=== PATIENT | male | born 1930 | race Caucasian/White ===

== ENCOUNTER 2021-04-08 22:25 | Inpatient (IN) | payer MEDICARE, BC, OTHER ==
[~2021-04-08] VITALS: Ht 177.8 cm; Wt 77.6 kg
--- NOTE | 2021-04-08 22:58 | NUR ---
XRAY AT BEDSIDE.
[2021-04-08 22:59] LABS: HEMATOCRIT 33.7 % (36.7-47.1); MEAN CORPUSCULAR HEMOGLOBIN 28.1 uug (23.8-33.4); MEAN CORPUSCULAR VOLUME 84.8 fL (73.0-96.2); PLATELET COUNT (AUTO) 489 K/uL (152-348)
[2021-04-08 23:05] LABS: CARBON DIOXIDE 26 mmol/L (21-32); CHLORIDE 105 mmol/L (98-107); CREATININE 2.2 mg/dL (0.6-1.3); GLUCOSE 126 mg/dL (74-106); POTASSIUM 4.3 mmol/L (3.5-5.1); UREA NITROGEN, BLOOD 43 mg/dL (7-18)
[2021-04-08 23:16] LABS: ALANINE AMINOTRANSFERASE 20 U/L (16-63); ALKALINE PHOSPHATASE 130 U/L (50-136); ASPARTATE AMINOTRANSFERASE 21 U/L (15-37); BILIRUBIN,DIRECT 0.1 mg/dL (0.0-0.2); BILIRUBIN,TOTAL 0.3 mg/dL (0.2-1.0); TOTAL PROTEIN, SERUM 7.3 g/dL (6.4-8.2)
[2021-04-08] MEDS ORDERED: CRAN200C PO (23:20)
[2021-04-08] MEDS ORDERED: DOXA4TAB2 PO (23:20)
[2021-04-08] MEDS ORDERED: MEMA10TA PO (23:20)
[2021-04-08] MEDS ORDERED: BISA10SU61 RC (23:20)
[2021-04-08] MEDS ORDERED: DICLOFENAC TOP (23:20)
[2021-04-08] MEDS ORDERED: AMLO10TA59 PO (23:20)
[2021-04-08] MEDS ORDERED: BRIN10DR EACHEYE (23:20)
[2021-04-08] MEDS ORDERED: SENN-261 PO (23:20)
[2021-04-08] MEDS ORDERED: CYAN100T44 PO (23:20)
[2021-04-08] MEDS ORDERED: ACET-2154 PO ×2 (23:20)
[2021-04-08] MEDS ORDERED: CHOL10005 PO (23:20)
[2021-04-08] MEDS ORDERED: BIMA2.5D5 EACHEYE (23:20)
[2021-04-08] MEDS ORDERED: ASPI81TA31 PO (23:20)
[2021-04-08] MEDS ORDERED: OMEP20TA5 PO (23:20)
[2021-04-09] MEDS ORDERED: LIDOCAINE 2% (UROJET) 10 ML JELLY MM ONE ×2 (00:01)
[2021-04-09] MEDS ORDERED: CEFTRIAXONE 1 G in IV DEXTROSE 5% 50 ML IV ONE (00:15)
[2021-04-09] MEDS ORDERED: ASPIRIN 300 MG RECTAL SUPP RC ONE ×2 (00:15→00:51)
[2021-04-09] MEDS ORDERED: CEFTRIAXONE /D5W 50ML IVPB **ER PYXIS IV ONE (00:24)
--- NOTE | 2021-04-09 01:00 | NUR ---
PT NOTED TO BE SOILED, PROVIDED PROPER PERINEAL CARE. PT NOTED TO BE CLEAN DRY AND COMFORTABLE.
--- NOTE | 2021-04-09 02:27 | NUR ---
CALLED [facility], HALLIE RESTREPO PAGED.
[2021-04-09] MEDS ORDERED: ONDANSETRON 4 MG/2 ML VIAL IV PRN (02:45)
[2021-04-09] MEDS ORDERED: ACETAMINOPHEN 325 MG TABLET-SA PATIENTS-PAIN ONLY PO PRN ×2 (02:45)
[2021-04-09] MEDS ORDERED: ACETAMINOPHEN 325 MG TABLET PO PRN (02:45)
--- NOTE | 2021-04-09 02:59 | NUR ---
CALLED [facility] FOR CT DICTATION.
--- NOTE | 2021-04-09 03:07 | NUR ---
GAVE REPORT TO ROLANDO ORDOÑEZ.
[2021-04-09 04:30] VITALS: BP 113/57
[2021-04-09] MEDS ORDERED: VANCOMYCIN IV 1,250 MG in IV DEXTROSE 5% 250 ML IV ONE (05:00)
--- NOTE | 2021-04-09 05:00 | NUR ---
Admitted a 89 years old male with Dx of Sepsis with secondary Dx of NSTEMI. Patient non-verbal, and withdrawn. In no apparent distress. No signs or symptoms of pain or SOB. O2 at 2 LPM via NC in place. O2 sat at 99%. SR on tele with AV block with HR of 75/min. IV site on right FA intact and patent. Routine admission care done. Plan of care initiated. Safety measure initiated and call light within reached.
[2021-04-09] MEDS: IV NS 1000 ML 1,000 ML IV PRN (05:01)
--- NOTE | 2021-04-09 05:10 | NUR ---
Pt. admitted to TELE , under care of Dr. RESTREPO DX: SEPSIS Belongs List completed
[2021-04-09] MEDS ORDERED: PIPERACILLIN SODIUM/TAZOBACTAM 3.375 G in IV DEXTROSE 5% 50 ML IV ONE (05:15)
[2021-04-09] MEDS ORDERED: PIPERACILLIN SODIUM/TAZO 3.375 GM VIAL ONE (05:40)
[2021-04-09] MEDS ORDERED: VANCOMYCIN 1000 MG VIAL ONE (05:41)
[2021-04-09] MEDS ORDERED: VANCOMYCIN HCL 500 MG VIAL ONE (05:42)
[2021-04-09] MEDS ORDERED: PIPERACILLIN SODIUM/TAZOBACTAM 3.375 G in IV DEXTROSE 5% 50 ML IV SCH (06:00)
[2021-04-09] MEDS ORDERED: PANTOPRAZOLE SODIUM 40 MG TABLET.DR PO SCH (07:00)
--- NOTE | 2021-04-09 08:00 | NUR ---
AWAKE ALERT AND RESPONSIVE VERBALLY BUT GARBLED. NOTED COUGHING DURING FEEDING. WILL FOLLOW-UP ST FOR EVAL. NO SS OF DISTRESS WITH CONTINUOUS O2 AT 2L SATURATING 100%. AFEBRILE. SR ON MONITOR
[2021-04-09] MEDS: PANTOPRAZOLE SODIUM 40 MG VIAL IV SCH (08:31)
[2021-04-09] MEDS: DORZOLAMIDE 2% OPHT DROP 10 ML BOTTLE EACHEYE SCH ×2 (08:31→16:37)
[2021-04-09] MEDS: CYANOCOBALAMIN 1,000 MCG TABLET PO SCH (08:32)
[2021-04-09] MEDS: CHOLECALCIFEROL 1,000 UNIT TABLET PO SCH (08:32)
[2021-04-09] MEDS: ASPIRIN 81 MG TAB.CHEW PO SCH (08:32)
[2021-04-09] MEDS: SENNOSIDES 1 TABLET PO SCH ×2 (08:32→16:36)
[2021-04-09] MEDS: MEMANTINE HCL 10 MG TABLET PO SCH ×2 (08:32→16:37)
--- NOTE | 2021-04-09 10:00 | NUR ---
TRIED INSERTION OF GOODEN BUT UNSUCCESSFUL DR VICENTE NOTIFIED AND SAID WILL NOTIFIED URO FOR CONSULT
[2021-04-09 10:41] LABS: HEMATOCRIT 32.5 % (36.7-47.1); MEAN CORPUSCULAR HEMOGLOBIN 27.7 uug (23.8-33.4); MEAN CORPUSCULAR VOLUME 85.7 fL (73.0-96.2); PLATELET COUNT (AUTO) 451 K/uL (152-348)
[2021-04-09 10:51] LABS: CARBON DIOXIDE 27 mmol/L (21-32); CHLORIDE 105 mmol/L (98-107); CREATININE 2.7 mg/dL (0.6-1.3); GLUCOSE 132 mg/dL (74-106); POTASSIUM 4.3 mmol/L (3.5-5.1); UREA NITROGEN, BLOOD 50 mg/dL (7-18)
[2021-04-09 11:07] VITALS: BP 93/38
[2021-04-09 11:07] LABS: ALANINE AMINOTRANSFERASE 42 U/L (16-63); ALKALINE PHOSPHATASE 98 U/L (50-136); ASPARTATE AMINOTRANSFERASE 214 U/L (15-37); BILIRUBIN,TOTAL 0.5 mg/dL (0.2-1.0); MAGNESIUM 2.1 mg/dL (1.8-2.4); PHOSPHOROUS 4.3 mg/dL (2.5-4.9); TOTAL PROTEIN, SERUM 7.1 g/dL (6.4-8.2)
[2021-04-09 11:08] LABS: THYROID STIMULATING HORMONE 1.386 mIU/mL (0.358-3.740)
--- NOTE | 2021-04-09 12:00 | NUR ---
PATIENT NOW GARTH STATUS, CLOSELY MONITORED
[2021-04-09] MEDS: PIPERACILLIN/TAZO 2.25 G in IV DEXTROSE 5% 50 ML IV SCH ×3 (12:22→23:07)
--- NOTE | 2021-04-09 13:00 | NUR ---
PATIENT TOLERATING O2 AT 2L NC SATURATING 100%. TOLERATING HEPARIN DRIP, CONTINUE PER PROTOCOL
[2021-04-09] MEDS: HEPARIN/D5W DRIP 500 ML IV PRN (13:08)
[2021-04-09] MEDS ORDERED: CLOPIDOGREL 75 MG TABLET PO ONE (15:30)
--- NOTE | 2021-04-09 16:00 | NUR ---
DR STANLEY IN AND INSERTED GOODEN CATH USING 16 FR COUDE, PATIENT TOLERATED WELL NO SIGNS OF BLEEDING. URINE SPC. SENT FOR ANALYSIS
[2021-04-09 16:33] VITALS: BP 129/68
--- NOTE | 2021-04-09 17:39 | NUR ---
DR ARBOLEDA AROUND AND MADE AWARE OF LATEST TROPONIN, NO NEW ORDERS MADE. PATIENT REMAINS ON GARTH STATUS WITH HEPARIN DRIP PER PROTOCOL. NO SS OF PAIN OR DISTRESS
[2021-04-09 17:47] LABS: *BILIRUBIN,URIN NEGATIVE (NEGATIVE); *BLOOD, URINE 3+ (NEGATIVE); *CLARITY,URINE TURBID (CLEAR); *COLOR,URINE YELLOW (YELLOW); *KETONES,URINE TRACE (NEGATIVE); *UROBILINOGEN,URINE 0.2 E.U./dl (NORMAL); LEUKOCYTE ESTERASE ,URINE 2+ (NEGATIVE); NITRITE, URINE NEGATIVE (NEGATIVE); PH,URINE 8.5 (5.0-8.0); UGLUCOSE NEGATIVE (NEGATIVE)
[2021-04-09 19:53] LABS: BACTERIA,URINE MODERATE /HPF (NONE SEEN); RBC,URINE TNTC /HPF (0-3); SQUAMOUS EPITHELIAL CELL,UR FEW /HPF (NONE SEEN); WBC,URINE TNTC /HPF (0-3)
[2021-04-09 20:00] VITALS: BP 113/64
[2021-04-09] MEDS: LATANOPROST OPHT DROP 2.5 ML BOTTLE EACHEYE SCH (21:40)
[2021-04-09] MEDS: DOXAZOSIN 2 MG TABLET PO SCH (21:41)
[2021-04-10 04:00] VITALS: BP 114/66
[2021-04-10] MEDS: PIPERACILLIN/TAZO 2.25 G in IV DEXTROSE 5% 50 ML IV SCH ×3 (06:07→17:22)
[2021-04-10] MEDS: IV NS 1000 ML 1,000 ML IV PRN (06:11)
[2021-04-10 07:39] LABS: HEMATOCRIT 30.5 % (36.7-47.1); MEAN CORPUSCULAR HEMOGLOBIN 27.5 uug (23.8-33.4); MEAN CORPUSCULAR VOLUME 85.7 fL (73.0-96.2); PLATELET COUNT (AUTO) 399 K/uL (152-348)
[2021-04-10 07:52] LABS: ALANINE AMINOTRANSFERASE 47 U/L (16-63); ALKALINE PHOSPHATASE 84 U/L (50-136); ASPARTATE AMINOTRANSFERASE 193 U/L (15-37); BILIRUBIN,TOTAL 0.3 mg/dL (0.2-1.0); CARBON DIOXIDE 26 mmol/L (21-32); CHLORIDE 106 mmol/L (98-107); CREATININE 2.3 mg/dL (0.6-1.3); GLUCOSE 121 mg/dL (74-106); POTASSIUM 4.1 mmol/L (3.5-5.1); TOTAL PROTEIN, SERUM 6.8 g/dL (6.4-8.2); UREA NITROGEN, BLOOD 47 mg/dL (7-18)
--- NOTE | 2021-04-10 08:00 | NUR ---
RECEIVED PATIENT AWAKE AND OPENS EYES TO VERBAL AND TACTILE STIMULI, NO SIGNS OF DISTRESS WITH 2-3 L O2 NC. ON GOING HEPARIN DRIP PER PROTOCOL. SR ON MONITOR
[2021-04-10] MEDS: ASPIRIN 81 MG TAB.CHEW PO SCH (08:33)
[2021-04-10] MEDS: PANTOPRAZOLE SODIUM 40 MG VIAL IV SCH (08:33)
[2021-04-10] MEDS: CHOLECALCIFEROL 1,000 UNIT TABLET PO SCH (08:34)
[2021-04-10] MEDS: CYANOCOBALAMIN 1,000 MCG TABLET PO SCH (08:34)
[2021-04-10] MEDS: SENNOSIDES 1 TABLET PO SCH ×2 (08:34→17:00)
[2021-04-10] MEDS: MEMANTINE HCL 10 MG TABLET PO SCH ×2 (08:34→17:00)
[2021-04-10] MEDS: CLOPIDOGREL 75 MG TABLET PO SCH (08:34)
[2021-04-10] MEDS: LATANOPROST OPHT DROP 2.5 ML BOTTLE EACHEYE SCH (08:36)
[2021-04-10] MEDS: DORZOLAMIDE 2% OPHT DROP 10 ML BOTTLE EACHEYE SCH ×2 (08:40→17:21)
[2021-04-10] MEDS: HEPARIN/D5W DRIP 500 ML IV PRN (10:35)
[2021-04-10 12:00] VITALS: BP_SYST 142; BP_SYST 165; BP_DIAS 75; BP_DIAS 84
--- NOTE | 2021-04-10 12:00 | NUR ---
NO ACUTE CHANGE FRO MORNING ASSESSMENT SEEN BY DR ARBOLEDA SEE NOTES
[2021-04-10 14:30] LABS: VANCOMYCIN,RANDOM 10.3 ug/mL (18.0-26.0)
[2021-04-10] MEDS ORDERED: VANCOMYCIN IV 750 MG in IV DEXTROSE 5% 250 ML IV ONE (15:00)
[2021-04-10 16:24] VITALS: BP 141/82
--- NOTE | 2021-04-10 17:00 | NUR ---
CONTINUE WITH HEPARIN DRIP PER PROTOCOL.
[2021-04-10] MEDS ORDERED: LEVALBUTEROL HCL NEB 0.63 MG/3 ML NEBU NEB PRN (18:45)
--- NOTE | 2021-04-10 18:45 | NUR ---
ON AND OFF WHEEZING NOTED, PATIENT SATURATION 100% 2-3L NC. DR VICENTE NOTIFIED WITH ORDERS. WILL START BREATHING TX. RT NOTIFIED.
[2021-04-10] MEDS: ALBUTEROL SULFATE 2.5 MG/3 ML NEBU NEB PRN (19:06)
[2021-04-10 20:00] VITALS: BP 138/79
[2021-04-10] MEDS: DOXAZOSIN 2 MG TABLET PO SCH (21:00)
--- NOTE | 2021-04-10 21:48 | NUR ---
Held PO night meds due to patient aspirating during day shift. Swallow eval pending.
[2021-04-11] VITALS: BP 132/95
[2021-04-11] MEDS: PIPERACILLIN/TAZO 2.25 G in IV DEXTROSE 5% 50 ML IV SCH ×2 (01:02→08:17)
[2021-04-11] MEDS: ALBUTEROL SULFATE 2.5 MG/3 ML NEBU NEB PRN (03:44)
[2021-04-11 04:00] VITALS: BP 146/80
--- NOTE | 2021-04-11 05:57 | NUR ---
Pt slept throughout the night. Breathing treatments given PRN. Heparin drip currently running at 1050units. Waiting for PTT results to update Heparin rate. No distress noted. IV site intact. Pt's son wishes to speak to doctor providing care to patient and also requests that patient receive a c.o.d. biller consult for his wheezing. Will endorse to day shift.
[2021-04-11 06:59] LABS: HEMATOCRIT 29.4 % (36.7-47.1); MEAN CORPUSCULAR HEMOGLOBIN 27.5 uug (23.8-33.4); MEAN CORPUSCULAR VOLUME 85.2 fL (73.0-96.2); PLATELET COUNT (AUTO) 420 K/uL (152-348)
[2021-04-11 07:49] LABS: CARBON DIOXIDE 25 mmol/L (21-32); CHLORIDE 108 mmol/L (98-107); CREATININE 2.2 mg/dL (0.6-1.3); GLUCOSE 137 mg/dL (74-106); MAGNESIUM 1.8 mg/dL (1.8-2.4); PHOSPHOROUS 4.6 mg/dL (2.5-4.9); POTASSIUM 3.9 mmol/L (3.5-5.1); UREA NITROGEN, BLOOD 38 mg/dL (7-18); VANCOMYCIN,RANDOM 13.3 ug/mL (18.0-26.0)
[2021-04-11] MEDS ORDERED: VANCOMYCIN IV 1,000 MG in IV DEXTROSE 5% 250 ML IV ONE (08:30)
[2021-04-11 08:35] VITALS: BP 166/88
[2021-04-11] MEDS: CHOLECALCIFEROL 1,000 UNIT TABLET PO SCH (09:00)
[2021-04-11] MEDS: SENNOSIDES 1 TABLET PO SCH ×2 (09:00→17:00)
[2021-04-11] MEDS: CLOPIDOGREL 75 MG TABLET PO SCH (09:00)
[2021-04-11] MEDS: METOPROLOL TARTRATE 25 MG TABLET PO SCH ×2 (09:00→20:48)
[2021-04-11] MEDS: ASPIRIN 81 MG TAB.CHEW PO SCH (09:00)
[2021-04-11] MEDS: CYANOCOBALAMIN 1,000 MCG TABLET PO SCH (09:00)
[2021-04-11] MEDS: MEMANTINE HCL 10 MG TABLET PO SCH ×2 (09:00→17:00)
[2021-04-11] MEDS: PANTOPRAZOLE SODIUM 40 MG VIAL IV SCH (10:20)
[2021-04-11] MEDS: DORZOLAMIDE 2% OPHT DROP 10 ML BOTTLE EACHEYE SCH ×2 (10:20→17:41)
[2021-04-11 12:00] VITALS: BP 141/77
[2021-04-11] MEDS: PIPERACILLIN SODIUM/TAZOBACTAM 3.375 G in IV DEXTROSE 5% 100 ML IV SCH ×2 (14:57→21:18)
[2021-04-11] MEDS ORDERED: VANCOMYCIN IV 1,250 MG in IV DEXTROSE 5% 250 ML IV ONE (15:00)
--- NOTE | 2021-04-11 15:28 | NUR ---
Pt is a/o x 1, non verbal, presenting with sinus rhyth and first degree heart block on telemetry. Latest aPTT level is 49.0 downward trending. Heparin drip discontinued in the am. Pt's lemus catheter draining yellow/bell urine. Pt was oin cardiac diet but placed on NPO last night due to aspiration and wheezing present. Swallow evaluation done today by . Pt continue to receive IV antibiotics. Morning PO medications held due to NPO status, MD notified. Cooling measures provided for temperature. Comfort measures provided, call light within reach, frequent checks on pt conducted. Will continue to monitor.
[2021-04-11 16:14] VITALS: BP 140/76
[2021-04-11 20:44] VITALS: BP 104/61
[2021-04-11] MEDS: LATANOPROST OPHT DROP 2.5 ML BOTTLE EACHEYE SCH (20:46)
[2021-04-11] MEDS: DOXAZOSIN 2 MG TABLET PO SCH (20:47)
[2021-04-12 01:31] VITALS: BP 139/87
[2021-04-12 04:22] VITALS: BP 142/51
[2021-04-12] MEDS: PIPERACILLIN SODIUM/TAZOBACTAM 3.375 G in IV DEXTROSE 5% 100 ML IV SCH ×2 (05:07→13:19)
--- NOTE | 2021-04-12 06:32 | NUR ---
Received resident awake on bed with son at bedside upon initial rounds. On O2 at 2L via NC with no respiratory distress noted. NSR on Tele. Remains on NPO per ST eval, oral meds not given, vital signs WNL. FC draining well with clear, yellowish urine. All due meds given on time and tolerated well. All needs attended. Call light placed within reach. Frequent visual checks done. Will endorse to next shift.
[2021-04-12 07:01] LABS: HEMATOCRIT 30.8 % (36.7-47.1); MEAN CORPUSCULAR VOLUME 86.3 fL (73.0-96.2); PLATELET COUNT (AUTO) 402 K/uL (152-348)
[2021-04-12 07:10] LABS: CARBON DIOXIDE 23 mmol/L (21-32); CHLORIDE 110 mmol/L (98-107); CREATININE 1.9 mg/dL (0.6-1.3); GLUCOSE 95 mg/dL (74-106); POTASSIUM 4.2 mmol/L (3.5-5.1); UREA NITROGEN, BLOOD 32 mg/dL (7-18)
[2021-04-12 08:00] VITALS: BP 149/63
[2021-04-12] MEDS: CLOPIDOGREL 75 MG TABLET PO SCH (09:00)
[2021-04-12] MEDS: MEMANTINE HCL 10 MG TABLET PO SCH ×2 (09:00→16:03)
[2021-04-12] MEDS: ASPIRIN 81 MG TAB.CHEW PO SCH (09:00)
[2021-04-12] MEDS: METOPROLOL TARTRATE 25 MG TABLET PO SCH ×2 (09:00→21:00)
[2021-04-12] MEDS: SENNOSIDES 1 TABLET PO SCH ×2 (09:00→16:03)
[2021-04-12] MEDS: CHOLECALCIFEROL 1,000 UNIT TABLET PO SCH (09:00)
[2021-04-12] MEDS: CYANOCOBALAMIN 1,000 MCG TABLET PO SCH (09:00)
[2021-04-12] MEDS: PANTOPRAZOLE SODIUM 40 MG VIAL IV SCH (09:06)
[2021-04-12] MEDS: DORZOLAMIDE 2% OPHT DROP 10 ML BOTTLE EACHEYE SCH ×2 (09:07→16:44)
--- NOTE | 2021-04-12 16:57 | NUR ---
Dr. Poon notified of patient with current temp of 102.2 with new order for tylenol suppository and blood culture, order noted and carried out.
[2021-04-12] MEDS: ACETAMINOPHEN 650 MG SUPP.RECT RC PRN (17:10)
[2021-04-12 17:30] VITALS: BP 134/71
[2021-04-12] MEDS: IV D5 1/2 NS 1000 ML 1,000 ML IV PRN (17:47)
--- NOTE | 2021-04-12 20:30 | NUR ---
Patient awake alert 1 to 2, unable to tolerate po meds per report, patient npo including medications. Patient has no cough at this time, tolerate iv hydration, on iv abx for sepsis/uti. Patient lemus cath draining with tea color urine in moderate amount, no s/s of pain.
[2021-04-12 20:49] VITALS: BP 120/70
[2021-04-12] MEDS ORDERED: MEROPENEM 1 G in IV NORMAL SALINE 100 ML IV SCH (21:00)
[2021-04-12] MEDS: DOXAZOSIN 2 MG TABLET PO SCH (21:00)
[2021-04-12] MEDS: LATANOPROST OPHT DROP 2.5 ML BOTTLE EACHEYE SCH (21:49)
[2021-04-12] MEDS ORDERED: MEROPENEM 1 G VIAL IV ONE (21:51)
--- NOTE | 2021-04-12 22:06 | NUR ---
medication meropenem 1 gram via iv medication unscannable, enter manually.
[2021-04-13 00:40] VITALS: BP 134/85
--- NOTE | 2021-04-13 04:12 | NUR ---
Patient afebrile, with slight productive cough, HOb elevated turn and reposition, cont to monitor.
[2021-04-13 04:25] VITALS: BP 121/90
--- NOTE | 2021-04-13 06:27 | NUR ---
Patient awake no sob no chest pain, tele monitor sinus rhythm, remains npo, no further episode of coughing noted, kept hob elevated, v/s stable cont to monitor.
--- NOTE | 2021-04-13 07:30 | NUR ---
Received patient in bed. Patient sounds congested and is in need of oral care. No SOB noted at this time. Safety precautions are in place. Will continue to monitor.
[2021-04-13 07:46] LABS: HEMATOCRIT 31.3 % (36.7-47.1); MEAN CORPUSCULAR VOLUME 85.7 fL (73.0-96.2); PLATELET COUNT (AUTO) 380 K/uL (152-348)
[2021-04-13 07:56] LABS: ALANINE AMINOTRANSFERASE 21 U/L (16-63); ALKALINE PHOSPHATASE 72 U/L (50-136); ASPARTATE AMINOTRANSFERASE 36 U/L (15-37); BILIRUBIN,TOTAL 0.4 mg/dL (0.2-1.0); CARBON DIOXIDE 28 mmol/L (21-32); CHLORIDE 113 mmol/L (98-107); CREATINE KINASE, TOTAL 255 U/L (39-308); CREATININE 2.1 mg/dL (0.6-1.3); GLUCOSE 104 mg/dL (74-106); MAGNESIUM 2.1 mg/dL (1.8-2.4); PHOSPHOROUS 3.4 mg/dL (2.5-4.9); POTASSIUM 4.1 mmol/L (3.5-5.1); TOTAL PROTEIN, SERUM 7.3 g/dL (6.4-8.2); UREA NITROGEN, BLOOD 32 mg/dL (7-18)
[2021-04-13 08:16] VITALS: BP 162/52
--- NOTE | 2021-04-13 08:30 | NUR ---
Patient spiked a temperature of 101.6, cooling measures implemented 3 bags of ice in groin and underarms. Cool rag on forehead and Tylenol suppository. Will continue to monitor.
[2021-04-13] MEDS: PANTOPRAZOLE SODIUM 40 MG VIAL IV SCH (08:57)
[2021-04-13] MEDS: ACETAMINOPHEN 650 MG SUPP.RECT RC PRN (08:58)
[2021-04-13] MEDS: ASPIRIN 81 MG TAB.CHEW PO SCH (08:58)
[2021-04-13] MEDS: DORZOLAMIDE 2% OPHT DROP 10 ML BOTTLE EACHEYE SCH ×2 (08:58→17:19)
[2021-04-13] MEDS: METOPROLOL TARTRATE 25 MG TABLET PO SCH ×3 (08:59→21:11)
[2021-04-13] MEDS: SENNOSIDES 1 TABLET PO SCH ×2 (08:59→17:00)
[2021-04-13] MEDS: MEMANTINE HCL 10 MG TABLET PO SCH ×2 (08:59→17:00)
[2021-04-13] MEDS: CLOPIDOGREL 75 MG TABLET PO SCH (08:59)
[2021-04-13] MEDS: CYANOCOBALAMIN 1,000 MCG TABLET PO SCH (09:00)
[2021-04-13] MEDS: CHOLECALCIFEROL 1,000 UNIT TABLET PO SCH (09:00)
[2021-04-13] MEDS: MEROPENEM 1 G in IV NORMAL SALINE 100 ML IV SCH ×2 (10:59→22:23)
[2021-04-13 13:09] VITALS: BP 169/42
[2021-04-13] MEDS: ALBUTEROL SULFATE 2.5 MG/3 ML NEBU NEB PRN ×2 (14:38→22:15)
[2021-04-13 16:41] VITALS: BP 133/75
[2021-04-13] MEDS: IV D5 1/2 NS 1000 ML 1,000 ML IV PRN (17:23)
--- NOTE | 2021-04-13 18:38 | NUR ---
Patient is fever free at time, still awaiting results from blood cultures. Patient is resting in bed. Had respiratory deep suction the patient and he seemed to be doing better. Patient is on 2L NC. Safety measures are in place. Will endorse to the shift supervisor film processing.
--- NOTE | 2021-04-13 19:30 | NUR ---
Received patient lying in bed. Lethargic, non-verbal. Occasionally responds with non-verbal cues. Reoriented patient to place and time. On tele monitor, currently showing sinus rhythm with occasional PACs with HR of 96bpm. On 2L NC, saturating 100%. IV on TATIANA, 20 gauge, running D5 0/45% NS running 60 cc/hr. Currently on NPO d/t failed swallow eval. Upper and lower extremities contracted. Breathing treatment requested. Aspiration precaution and safety measures initiated. Will continue to monitor
[2021-04-13 20:53] VITALS: BP 152/66
[2021-04-13] MEDS: DOXAZOSIN 2 MG TABLET PO SCH ×2 (21:00→21:10)
[2021-04-13] MEDS: LATANOPROST OPHT DROP 2.5 ML BOTTLE EACHEYE SCH (21:12)
--- NOTE | 2021-04-13 21:30 | NUR ---
Patient's BP elevated at 152/66mmhg with HR of 82bpm. Unable to give PO medication as ordered. Notified MD almond sorter. MD ordered Clonidine patch TTS 1 q7days and Vasotec 2.5mg IV Q6H PRN for SBP above 150.
[2021-04-13] MEDS ORDERED: CLONIDINE-TTS 1 PATCH TD SCH (23:45)
[2021-04-13] MEDS ORDERED: ENALAPRILAT DIHYDRATE 1.25 MG/1 ML VIAL IV PRN (23:45)
[2021-04-14] MEDS ORDERED: CLONIDINE-TTS 1 PATCH TD ONE (00:05)
--- NOTE | 2021-04-14 00:30 | NUR ---
Patient's temperature was elevated at 100.9. Gave suppository acetaminophen. New skin tear noted on sacral area, photo taken and attached to chart. Skin tear cleansed, applied area with Z guard and covered with Mepilex. Wound care consult ordered.
[2021-04-14] MEDS: ACETAMINOPHEN 650 MG SUPP.RECT RC PRN (00:41)
[2021-04-14 00:56] VITALS: BP 141/75
[2021-04-14 04:46] VITALS: BP 152/77
--- NOTE | 2021-04-14 06:56 | NUR ---
Patient slept through the night. Still non-verbal. On tele monitor, showing sinus rhythm with HR of 88bpm. IVF on L UA, infusing well. Unable to give PO Protonix medication since patient failed swallow evaluation and MD hasn't reply to request to switch to IV med. No acute distress noted at this time.Suctioning and oral done PRN. Aspiration precaution and safety measures maintained. Will endorse to day shift nurse.
[2021-04-14] MEDS: PANTOPRAZOLE SODIUM 40 MG TABLET.DR PO SCH (07:00)
[2021-04-14 07:47] LABS: HEMATOCRIT 30.6 % (36.7-47.1); MEAN CORPUSCULAR HEMOGLOBIN 27.3 uug (23.8-33.4); MEAN CORPUSCULAR VOLUME 86.4 fL (73.0-96.2); PLATELET COUNT (AUTO) 356 K/uL (152-348)
[2021-04-14 08:09] LABS: CARBON DIOXIDE 28 mmol/L (21-32); CHLORIDE 116 mmol/L (98-107); CREATININE 2.2 mg/dL (0.6-1.3); GLUCOSE 128 mg/dL (74-106); MAGNESIUM 2.1 mg/dL (1.8-2.4); PHOSPHOROUS 3.8 mg/dL (2.5-4.9); POTASSIUM 4.1 mmol/L (3.5-5.1); UREA NITROGEN, BLOOD 32 mg/dL (7-18)
--- NOTE | 2021-04-14 08:51 | NUR ---
Will clarify with MD if ok to give meds since pt failed swallow eval and pt is NPO.
[2021-04-14] MEDS: CYANOCOBALAMIN 1,000 MCG TABLET PO SCH (09:00)
[2021-04-14] MEDS: MEMANTINE HCL 10 MG TABLET PO SCH ×2 (09:00→16:09)
[2021-04-14] MEDS: CLOPIDOGREL 75 MG TABLET PO SCH (09:00)
[2021-04-14] MEDS: CHOLECALCIFEROL 1,000 UNIT TABLET PO SCH (09:00)
[2021-04-14] MEDS: SENNOSIDES 1 TABLET PO SCH ×2 (09:00→16:09)
[2021-04-14] MEDS: ASPIRIN 81 MG TAB.CHEW PO SCH (09:00)
[2021-04-14] MEDS: METOPROLOL TARTRATE 25 MG TABLET PO SCH ×2 (09:00→21:00)
[2021-04-14] MEDS: DORZOLAMIDE 2% OPHT DROP 10 ML BOTTLE EACHEYE SCH ×2 (10:28→16:10)
[2021-04-14] MEDS: MEROPENEM 1 G in IV NORMAL SALINE 100 ML IV SCH ×2 (10:36→21:06)
[2021-04-14 12:00] VITALS: BP 150/75
--- NOTE | 2021-04-14 12:30 | NUR ---
Dr taylor spoke with family extensively regarding possible plan of care for pt. Comfort measure vs. G tube. Awaiting family decision
[2021-04-14 16:00] VITALS: BP 153/85
--- NOTE | 2021-04-14 16:00 | NUR ---
Urine specimen collected and sent down to LAB as ordered per Dr García's order.
[2021-04-14 17:00] LABS: *BILIRUBIN,URIN NEGATIVE (NEGATIVE); *BLOOD, URINE 3+ (NEGATIVE); *CLARITY,URINE CLOUDY (CLEAR); *COLOR,URINE YELLOW (YELLOW); *KETONES,URINE TRACE (NEGATIVE); *UROBILINOGEN,URINE 0.2 E.U./dl (NORMAL); LEUKOCYTE ESTERASE ,URINE TRACE (NEGATIVE); NITRITE, URINE NEGATIVE (NEGATIVE); UGLUCOSE NEGATIVE (NEGATIVE)
[2021-04-14 18:42] LABS: BACTERIA,URINE MODERATE /HPF (NONE SEEN); RBC,URINE 20-50 /HPF (0-3); SQUAMOUS EPITHELIAL CELL,UR FEW /HPF (NONE SEEN)
--- NOTE | 2021-04-14 18:52 | NUR ---
Vasotec prn for sbp >150 given earlier effective. 140/59. will continue to monitor patient.
[2021-04-14 20:09] VITALS: BP 138/46
[2021-04-14] MEDS: DOXAZOSIN 2 MG TABLET PO SCH (21:00)
[2021-04-14] MEDS: LATANOPROST OPHT DROP 2.5 ML BOTTLE EACHEYE SCH (21:08)
[2021-04-14] MEDS: ALBUTEROL SULFATE 2.5 MG/3 ML NEBU NEB PRN (21:41)
[2021-04-14 23:59] LABS: *CREATININE,URINE 243.7 mg/dL (30-125); *URINE TOTAL PROTEIN RANDOM 259.7 mg/dL (<150/24HR)
[2021-04-15] VITALS: BP 143/78
--- NOTE | 2021-04-15 00:29 | NUR ---
suctioned brianna trache and naso trache secretions; very thick copious secretions suctioned; oral care done; will continue to monitor
[2021-04-15 04:09] VITALS: BP 145/70
--- NOTE | 2021-04-15 06:00 | NUR ---
PT REPOSITIONED Q2H; KEPT NPO; ORAL CARE DONE; SUCTIONED SECRETIONS; SAFETY MAINTAINED
[2021-04-15] MEDS: PANTOPRAZOLE SODIUM 40 MG TABLET.DR PO SCH (06:12)
[2021-04-15 07:42] LABS: HEMATOCRIT 31.1 % (36.7-47.1); MEAN CORPUSCULAR HEMOGLOBIN 27.8 uug (23.8-33.4); PLATELET COUNT (AUTO) 312 K/uL (152-348)
[2021-04-15 08:06] LABS: ALANINE AMINOTRANSFERASE 24 U/L (16-63); ALKALINE PHOSPHATASE 64 U/L (50-136); ASPARTATE AMINOTRANSFERASE 42 U/L (15-37); BILIRUBIN,TOTAL 0.4 mg/dL (0.2-1.0); CARBON DIOXIDE 30 mmol/L (21-32); CHLORIDE 119 mmol/L (98-107); CREATINE KINASE, TOTAL 647 U/L (39-308); CREATININE 2.2 mg/dL (0.6-1.3); GLUCOSE 126 mg/dL (74-106); MAGNESIUM 2.2 mg/dL (1.8-2.4); PHOSPHOROUS 3.7 mg/dL (2.5-4.9); POTASSIUM 4.3 mmol/L (3.5-5.1); TOTAL PROTEIN, SERUM 6.6 g/dL (6.4-8.2); UREA NITROGEN, BLOOD 35 mg/dL (7-18)
[2021-04-15] MEDS: ASPIRIN 81 MG TAB.CHEW PO SCH (09:00)
[2021-04-15] MEDS: METOPROLOL TARTRATE 25 MG TABLET PO SCH ×2 (09:00→20:30)
[2021-04-15] MEDS: CLOPIDOGREL 75 MG TABLET PO SCH (09:00)
[2021-04-15] MEDS: CYANOCOBALAMIN 1,000 MCG TABLET PO SCH (09:00)
[2021-04-15] MEDS: MEMANTINE HCL 10 MG TABLET PO SCH ×2 (09:00→17:00)
[2021-04-15] MEDS: SENNOSIDES 1 TABLET PO SCH ×2 (09:00→17:00)
[2021-04-15] MEDS: CHOLECALCIFEROL 1,000 UNIT TABLET PO SCH (09:00)
[2021-04-15 11:49] VITALS: BP 143/71
[2021-04-15 12:06] LABS: A/G RATIO 0.8 (0.7-1.7); ALBUMIN 2.7 g/dL (2.9-4.4); ALPHA-1-GLOBULIN 0.4 g/dL (0.0-0.4); ALPHA-2-GLOBULIN 1.1 g/dL (0.4-1.0); BETA GLOBULIN 0.8 g/dL (0.7-1.3); GAMMA GLOBULIN 1.4 g/dL (0.4-1.8); GLOBULIN, TOTAL 3.6 g/dL (2.2-3.9); M-SPIKE Not Observed g/dL (Not Observed)
--- NOTE | 2021-04-15 12:18 | NUR ---
WOUND CARE CONSULT: PT NOTED TO HAVE SCARRING TO BACK, SACRAL DEEP TISSUE INJURY IN EVOLUTION OVER PREVIOUS SCARRING, INTACT DEEP TISSUE INJURIES TO RT ANKLE AND BILATERAL HEELS, RT MEDIAL ANKLE SKIN TEAR AND DISCOLORATION TO LEFT FOOT. PT NOTED TO HAVE MULTIPLE CO-MORBIDITIES INCLUDING ADVANCED DEMENTIA, ACUTE TOXIC METABOLIC ENCEPHALOPATHY, CHRONIC ANEMIA, MALNUTRITION AND ADRENAL NODULE. DUE TO MULTIPLE CO-MORBIDITIES, FUTHER SKIN BREAKDOWN MAY BE UNAVOIDABLE. SURGICAL AND DPM CONSULTS CALLED TO DR CHEEMA AND DR SHIRLEY. RECOMMENDATIONS MADE FOR SKIN PROTECTION AND DISCUSSED WITH NURSING STAFF. MD IN AGREEMENT WITH PLAN OF CARE.
[2021-04-15] MEDS: IV D5 1/2 NS 1000 ML 1,000 ML IV PRN (15:08)
[2021-04-15] MEDS: MEROPENEM 1 G in IV NORMAL SALINE 100 ML IV SCH ×2 (15:09→21:07)
[2021-04-15] MEDS: DORZOLAMIDE 2% OPHT DROP 10 ML BOTTLE EACHEYE SCH ×2 (15:11→17:28)
--- NOTE | 2021-04-15 16:00 | NUR ---
Dr taylor aware of elevated temp. Tylenol suppository given and cooling measure done. Will monitor temp. Rapid covid test specimen sent to lab as ordered.
[2021-04-15 16:11] VITALS: BP 133/68
[2021-04-15] MEDS: ACETAMINOPHEN 650 MG SUPP.RECT RC PRN (16:40)
[2021-04-15] MEDS ORDERED: IV D5W 1000ML 1,000 ML IV PRN (17:30)
--- NOTE | 2021-04-15 18:21 | NUR ---
Notified Dr taylor pt is positive in rapid covid test. Will transfer patient to isolate on covid rooms when available. Per meg GILL pt will go back to [facility] but will need to make room for covid patient for discharge tomorrow. DR taylor ok to have pt dc cancel today.
--- NOTE | 2021-04-15 19:45 | NUR ---
Received patient lying in bed. Appears weak and lethargic. Non-verbal. Appears calm and comfortable. In no apparent distress. On O2 at 2LPM via NC in place. O2 sat at 100%. IV site on left upper arm and left FA intact and patent. IVF infusing. Will change IV fluids to D5W at 75cc/hr per order. Temp at 99.1 orally. will provide cooling measures. Yip catheter intact and draining via gravity. Needs assessed and anticipated to. COVID precaution observed. Safety measure initiated and call tran within reached.
[2021-04-15 20:00] VITALS: BP 124/68
[2021-04-15] MEDS: DOXAZOSIN 2 MG TABLET PO SCH (20:29)
[2021-04-15] MEDS: LATANOPROST OPHT DROP 2.5 ML BOTTLE EACHEYE SCH (20:29)
--- NOTE | 2021-04-16 05:52 | NUR ---
Appears calm and comfortable. In no acute distress. O2 at 2LPM via NC. O2 sat at 100%. Afebrile. IV site on left upper arm and left FA intact and patent. IVF infusing. No adverse effect noted from IV antibiotic. No secretions noted the whole shift. Yip catheter intact and draining via gravity. Needs assessed and anticipated to. COVID precaution maintained. Safety measure maintained and call tran within reached.
[2021-04-16] MEDS: PANTOPRAZOLE SODIUM 40 MG TABLET.DR PO SCH (06:06)
[2021-04-16 06:41] VITALS: BP 126/74
[2021-04-16 08:17] LABS: HEMATOCRIT 33.4 % (36.7-47.1); MEAN CORPUSCULAR HEMOGLOBIN 27.4 uug (23.8-33.4); PLATELET COUNT (AUTO) 278 K/uL (152-348)
[2021-04-16 08:23] LABS: CARBON DIOXIDE 29 mmol/L (21-32); CHLORIDE 117 mmol/L (98-107); CREATININE 2.1 mg/dL (0.6-1.3); GLUCOSE 122 mg/dL (74-106); POTASSIUM 4.5 mmol/L (3.5-5.1); UREA NITROGEN, BLOOD 42 mg/dL (7-18)
[2021-04-16] MEDS: DORZOLAMIDE 2% OPHT DROP 10 ML BOTTLE EACHEYE SCH (08:47)
[2021-04-16] MEDS: METOPROLOL TARTRATE 25 MG TABLET PO SCH (08:47)
[2021-04-16] MEDS: ASPIRIN 81 MG TAB.CHEW PO SCH (08:47)
[2021-04-16] MEDS: CHOLECALCIFEROL 1,000 UNIT TABLET PO SCH (08:48)
[2021-04-16] MEDS: SENNOSIDES 1 TABLET PO SCH (08:48)
[2021-04-16] MEDS: CLOPIDOGREL 75 MG TABLET PO SCH (08:48)
[2021-04-16] MEDS: CYANOCOBALAMIN 1,000 MCG TABLET PO SCH (08:48)
[2021-04-16] MEDS: MEMANTINE HCL 10 MG TABLET PO SCH (08:48)
--- NOTE | 2021-04-16 09:00 | NUR ---
opened eyes and maintained eye contact when moved and oral care done, non verbal, remains NPO, head of bed elevated, suctioned of scant whitish phlegm, on 02- sat 100%, on isolation for positive covid test, needs attended, bed alarm on
[2021-04-16] MEDS: MEROPENEM 1 G in IV NORMAL SALINE 100 ML IV SCH (09:32)
[2021-04-16] MEDS ORDERED: ACET650S13 RC (10:51)
[2021-04-16] MEDS ORDERED: METO25TA6 PO (10:51)
[2021-04-16] MEDS ORDERED: CLON1PAT TD (10:51)
[2021-04-16] MEDS ORDERED: CLOP75TA33 PO (10:51)
[2021-04-16] MEDS ORDERED: PANT40TA49 PO (10:51)
[2021-04-16] MEDS ORDERED: ALBU2.5V7 NEB (10:51)
--- NOTE | 2021-04-16 11:00 | NUR ---
for d/c to snf today
--- NOTE | 2021-04-16 11:30 | NUR ---
called [facility] for report- spoke to Rebeca
[2021-04-16 12:00] VITALS: BP 142/86
--- NOTE | 2021-04-16 12:36 | NUR ---
ambulance here- report given, taken per guradilson in no distress, no belongings
[2021-04-16 14:06] LABS: A/G RATIO 0.7 (0.7-1.7); ALBUMIN 2.4 g/dL (2.9-4.4); ALPHA-1-GLOBULIN 0.3 g/dL (0.0-0.4); BETA GLOBULIN 0.8 g/dL (0.7-1.3); GAMMA GLOBULIN 1.3 g/dL (0.4-1.8); GLOBULIN, TOTAL 3.4 g/dL (2.2-3.9); M-SPIKE Not Observed g/dL (Not Observed)
== END 2021-04-16 12:36 | DRG 871 ==
LOC: ER 22:28 → TELE3 04-09 04:41 → TELE-TD3 04-09 11:52 → TELE3 04-10 14:52 → MEDSURG3 04-15 09:20
PROVIDERS: ADMIT Registered Nurse; ATTEND Registered Nurse
PROC: 0T9B70Z Drainage of Bladder with Drainage Device, Via Natural or Artificial Opening (ICD-10-PCS; principal; 2021-04-09)
PROC: 0T7D7ZZ Dilation of Urethra, Via Natural or Artificial Opening (ICD-10-PCS; 2021-04-09)
DX: A41.59 Other Gram-negative sepsis (principal); I21.4 Non-ST elevation (NSTEMI) myocardial infarction; U07.1 COVID-19; I50.23 Acute on chronic systolic (congestive) heart failure; N17.0 Acute kidney failure with tubular necrosis; N39.0 Urinary tract infection, site not specified; D68.59 Other primary thrombophilia; E44.0 Moderate protein-calorie malnutrition; I13.0 Hypertensive heart and chronic kidney disease with heart failure and stage 1 through stage 4 chronic kidney disease, or unspecified chronic kidney disease; Z66 Do not resuscitate; N18.9 Chronic kidney disease, unspecified; B96.4 Proteus (mirabilis) (morganii) as the cause of diseases classified elsewhere; N40.1 Benign prostatic hyperplasia with lower urinary tract symptoms; R33.8 Other retention of urine; I25.5 Ischemic cardiomyopathy; Z74.09 Other reduced mobility; D64.9 Anemia, unspecified; Z51.5 Encounter for palliative care; Z87.440 Personal history of urinary (tract) infections; H40.9 Unspecified glaucoma; K57.30 Diverticulosis of large intestine without perforation or abscess without bleeding; E27.9 Disorder of adrenal gland, unspecified; F03.90 Unspecified dementia, unspecified severity, without behavioral disturbance, psychotic disturbance, mood disturbance, and anxiety
CPT/HCPCS: 36415; 70030-TC; 71045; 83605; 83735; 83970; 84100; 84153; 84155; 84156; 84165; 84300; 84443; 85025; 85730; 87040; 87077; 87086; 93005; 93307; 94640; 94664; A4663; A6209; C9113; G0378; J0696; J1644; J2185; J2405; J2543; J3370; J3490; J7030; J7060; J7070